=== PATIENT | female | born 2000 | race Two or more races ===

== ENCOUNTER 2021-01-29 10:25 | Emergency (ER) | payer MEDICAID ==
[~2021-01-29] VITALS: Ht 162.6 cm; Wt 65.8 kg
[2021-01-29 10:25] VITALS: BP 123/86
[2021-01-29] MEDS ORDERED: diphenhdrAMINE HCL 25 MG CAP PO ONE (11:15)
[2021-01-29] MEDS ORDERED: methylPREDNISolone SOD SUCC 125 MG/2 ML VL IM ONE (11:15)
== END 2021-01-29 11:25 | disposition home or self-care (01) ==
LOC: ER 10:25
DX: R21 Rash and other nonspecific skin eruption (principal); F17.210 Nicotine dependence, cigarettes, uncomplicated
CPT/HCPCS: 96372; 99283; J2930

== ENCOUNTER 2021-02-04 04:47 | Emergency (ER) | payer MEDICAID ==
[~2021-02-04] VITALS: Ht 160 cm; Wt 68.9 kg
[2021-02-04 07:25] VITALS: BP 114/88
[2021-02-04] MEDS ORDERED: IPRATROPIUM BROM 0.5 MG/2.5ML INH SOL NEB ONE (07:30)
[2021-02-04] MEDS ORDERED: ALBUTEROL SULF 2.5 MG/0.5ML(0.5%) NEB SOLN NEB ONE (07:30)
[2021-02-04] MEDS ORDERED: methylPREDNISolone SOD SUCC 125 MG/2 ML VL IM ONE (07:30)
== END 2021-02-04 08:03 | disposition home or self-care (01) ==
LOC: ER 04:47
DX: J20.9 Acute bronchitis, unspecified (principal); F17.210 Nicotine dependence, cigarettes, uncomplicated; F12.10 Cannabis abuse, uncomplicated
CPT/HCPCS: 71045; 94640; 96372; 99283; J2930; J7644